=== PATIENT | female | born 1975 | race Caucasian/White ===

== ENCOUNTER 2016-07-25 10:56 | Emergency (ER) | payer OTHER ==
[~2016-07-25] VITALS: Ht 165.1 cm; Wt 90.0 kg
[~2016-07-25 10:56] MED LIST: NITR-58 PO; PHEN-538 PO
[2016-07-25 11:00] VITALS: Ht 165.1 cm; Wt 90.0 kg
[2016-07-25] MEDS ORDERED: ONDANSETRON 4 MG INJ IV STA (11:27)
[2016-07-25] MEDS ORDERED: KETOROLAC 30 MG INJ IV STA (11:27)
[2016-07-25] MEDS ORDERED: morphine 4 MG/ML VIAL IV STA (11:27)
[2016-07-25] MEDS ORDERED: CLINDAMYCIN 900 MG/D5W (PMX) 50 ML IVPB ONE (11:30)
--- NOTE | 2016-07-25 12:14 | ERD ---
ER Documentation Chief Complaint Date/Time DATE: 07/25/16 TIME: 12:11 Chief Complaint tooth pain x 3 days HPI 40-year-old female comes in with left lower dental pain and facial swelling that started approximately 3 days ago. This patient walked into the dental office, and she was told that because of the swelling that they were not able to pull the tooth out. They have referred her to the emergency department for antibiotics prior to tooth extraction. She has not had any fever, no voice changes, drooling. ROS All systems reviewed and are negative except as per history of present illness. Medications Home Meds Active Scripts Ibuprofen* (Motrin*) 600 Mg Tab, 600 MG PO Q6, #30 TAB Prov:DELANO CARRINGTON PA-C 07/25/16 Hydrocodone/Acetaminophen ([place] 10-325 Tablet) 1 Each Tablet, 1 TAB PO Q6H Y for PAIN, #15 TAB Prov:DELANO CARRINGTON PA-C 07/25/16 Clindamycin Hcl* (Clindamycin Hcl*) 300 Mg Capsule, 300 MG PO TID for 10 Days, CAP Prov:DELANO CARRINGTON PA-C 07/25/16 Phenazopyridine Hcl* (Pyridium*) 200 Mg Tab, 200 MG PO TID, #14 TAB Prov:SHAREE BEVERLY PA-C 01/26/16 Nitrofurantoin Monohyd Macrocr* (Macrobid*) 100 Mg Capsr, 100 MG PO BID for 7 Days, CAP Prov:SHAREE BEVERLY PA-C 01/26/16 Allergies Allergies: Coded Allergies: No Known Drug Allergy (Verified Allergy, Unknown, 11/22/13) PMhx/Soc Medical and Surgical Hx: pt denies Medical Hx, pt denies Surgical Hx History of Surgery: No Anesthesia Reaction: No Hx Neurological Disorder: No Hx Respiratory Disorders: No Hx Cardiac Disorders: No Hx Psychiatric Problems: No Hx Miscellaneous Medical Probl: No Hx Alcohol Use: No Hx Substance Use: No Hx Tobacco Use: No Smoking Status: Never smoker Physical Exam Vitals Vital Signs Date Time Temp Pulse Resp B/P Pulse Ox O2 Delivery O2 Flow Rate FiO2 07/25/16 13:24 98.0 84 18 128/90 99 Room Air 07/25/16 11:00 98.2 87 18 135/93 99 Physical Exam General: Well-developed, well-nourished. The patient appears in no acute distress. HEENT: Head is normocephalic, atraumatic. No scleral icterus. No trismus, no voice changes, drooling, tooth number #21 is tender to palpation, there is swelling across the left side of the lower face, there is no submandibular swelling. Neck: Supple. Nontender. Lungs: Clear to auscultation. Normal air movement. Heart: Regular rate and rhythm. S1 and S2 are normal. No murmurs, gallops, or rubs. Abdomen: Nondistended. Extremities: No clubbing or cyanosis. Moving extremities x 4. No weakness. Neurologic: Alert and oriented 3. No focal deficits. Normal speech and gait. Skin: Normal turgor. No rash or lesions. Results 24 hrs Current Medications Medications (Trade) Dose Ordered Sig/Anthony Route PRN Reason Start Time Stop Time Status Last Admin Dose Admin Clindamycin HCl/ Dextrose (Cleocin 900 Mg/ D5W (Pmx)) 50 ml @ 50 mls/hr ONCE ONCE IVPB 07/25/16 11:30 07/25/16 12:29 DC 07/25/16 12:52 Ketorolac Tromethamine (Toradol) 30 mg ONCE STAT IV 07/25/16 11:27 07/25/16 11:29 DC 07/25/16 12:17 Morphine Sulfate (morphine) 6 mg ONCE STAT IV 07/25/16 11:27 07/25/16 11:29 DC 07/25/16 12:17 Ondansetron HCl (Zofran Inj) 4 mg ONCE STAT IV 07/25/16 11:27 07/25/16 11:29 DC 07/25/16 12:17 Procedures/MDM ED course: Patient comes in with a dental abscess, I discussed this with her dental office , they stated that because there is to see much swelling at the prefer that she start antibiotics, including IV antibiotics. With the swelling and pain improves and patient may return in a couple of days for tooth extraction. She was given clindamycin 900 mg IV, Toradol 30 mg IV and morphine 6 mg and Zofran 4 mg IV. MDM: 40-year-old female comes in with a dental abscess, no evidence of Jasvir angina, retropharyngeal abscess, trismus, jaw dislocation, or significant abscess at this time. There is some swelling on the left side of the jawline, does not pass the mandible. She does have a specific tooth that the dental office is aware that needs to be extracted. She was given a dose of clindamycin here IV, will be advised to continue at home. Patient does not need emergent ENT evaluation or hospitalization or continuing IV antibiotics and is appropriate for outpatient management. I have advised her to take ibuprofen, continue antibiotics and pain medication at home and recheck with her dentist either tomorrow or the following day. Departure Diagnosis: Primary Impression: Dental abscess Condition: DELANO Goa PA-C Jul 25, 2016 12:14
[2016-07-25] MEDS ORDERED: HYDR-902 PO (12:44)
[2016-07-25] MEDS ORDERED: CLIN-73 PO (12:44)
[2016-07-25] MEDS ORDERED: IBUP-1542 PO (12:45)
[2016-07-25 13:24] VITALS: BP 128/90; PULSE 84; RESP 18; TEMP 98
== END 2016-07-25 13:25 | disposition home or self-care (01) ==
LOC: FTE 10:56
DX: K04.7 Periapical abscess without sinus (principal)
CPT/HCPCS: J1885; J2270; J2405; Z7610; 96374; 96375

== ENCOUNTER → 2017-02-08 | Emergency (ER) | payer SELFPAY ==
[~2017-02-08] VITALS: Ht 154.9 cm; Wt 78.9 kg
[~2017-02-08] MED LIST changes: +CLIN-73 PO; +HYDR-902 PO; +IBUP-1542 PO
[2017-02-08 12:13] VITALS: Ht 154.9 cm; Wt 78.9 kg
== END | disposition left against medical advice (07) ==
LOC: FTE 12:08
DX: Z53.21 Procedure and treatment not carried out due to patient leaving prior to being seen by health care provider (principal)